=== PATIENT | female | born 1985 | race Caucasian/White ===

== ENCOUNTER 2020-06-02 20:33 | Emergency (ER) | payer OTHER, BC ==
[~2020-06-02] VITALS: Ht 157.5 cm; Wt 53.5 kg
[2020-06-02 20:42] VITALS: Ht 157.5 cm; Wt 53.5 kg
[2020-06-02 21:57] VITALS: BP 126/81
== END 2020-06-02 21:57 | disposition home or self-care (01) ==
LOC: ED 20:33
DX: S39.012A Strain of muscle, fascia and tendon of lower back, initial encounter (principal); M25.511 Pain in right shoulder; M25.512 Pain in left shoulder; R42 Dizziness and giddiness; V49.49XA Driver injured in collision with other motor vehicles in traffic accident, initial encounter; Y93.I9 Activity, other involving external motion; Y92.488 Other paved roadways as the place of occurrence of the external cause; Y99.8 Other external cause status
CPT/HCPCS: J1885